=== PATIENT | male | born 1965 | race Caucasian/White ===

== ENCOUNTER 2017-11-30 22:13 | Emergency (ER) | payer OTHER ==
[~2017-11-30] VITALS: Ht 185.4 cm; Wt 58.2 kg
[2017-11-30 22:14] VITALS: BP 113/79
== END 2017-11-30 22:24 | disposition left against medical advice (07) ==
LOC: ED 22:18
DX: Z53.21 Procedure and treatment not carried out due to patient leaving prior to being seen by health care provider (principal)